=== PATIENT | female | born 1970 | race Caucasian/White ===

== ENCOUNTER → 2017-03-11 | Outpatient (CLI) | payer BC, OTHER ==
[~2017-03-11] MED LIST: MULTIVITAMINS1 EAC7 PO; NORCO 5-325 TA1 EACH PO; PRILOSEC 20 MG20 MG PO; PROBIOTIC1 EACH PO; ZOFRAN ODT4 MG PO
== END ==
LOC: RAD 00:54
DX: Z12.31 Encounter for screening mammogram for malignant neoplasm of breast (principal)

== ENCOUNTER → 2017-03-16 | Outpatient (CLI) | payer BC, OTHER | LOC: RAD 12:38 → ULTRA 13:25 | DX: N60.01 Solitary cyst of right breast (principal) ==

== ENCOUNTER → 2017-09-03 | Outpatient (CLI) | payer BC, OTHER | LOC: RAD 01:05 | DX: N63.10 Unspecified lump in the right breast, unspecified quadrant (principal); R92.8 Other abnormal and inconclusive findings on diagnostic imaging of breast ==

== ENCOUNTER → 2018-03-11 | Outpatient (CLI) | payer BC, OTHER | LOC: RAD 01:49 | DX: Z12.31 Encounter for screening mammogram for malignant neoplasm of breast (principal) ==